=== PATIENT | female | born 1955 | race Caucasian/White ===

== ENCOUNTER 2019-02-14 13:00 | Day surgery (SDC) | payer OTHER ==
[~2019-02-14 13:00] MED LIST: AMLODIPINE PO; ATEN50TA PO; BUPR100T4 PO; CHLO25TA2 PO; LISI40TA4 PO
[2019-02-14] MEDS ORDERED: LIDOcaine 1%/PF 5ML 10 MG/ML VIAL ONE (13:22)
[2019-02-22] MEDS ORDERED: ATOR20TA PO (10:32)
[2019-02-22] MEDS ORDERED: POTA10TA19 PO (10:32)
[2019-02-22] MEDS ORDERED: HYDR12.5 PO (10:32)
[2019-02-22] MEDS ORDERED: AMLO10TA4 PO (10:32)
== END 2019-02-14 13:30 | disposition home or self-care (01) ==
LOC: WOUND CARE 13:00
PROVIDERS: ATTEND Surgery
DX: L02.411 Cutaneous abscess of right axilla (principal); L72.3 Sebaceous cyst; I10 Essential (primary) hypertension; M06.9 Rheumatoid arthritis, unspecified; Z87.891 Personal history of nicotine dependence
CPT/HCPCS: 10060; A6449

== ENCOUNTER 2019-02-26 07:17 | Day surgery (SDC) | payer OTHER ==
[2019-02-22 10:37] LABS: BASOPHILS # (AUTO) 0.1 X10'3 (0-0.2); EOSINOPHILS # (AUTO) 0.2 X10'3 (0-0.9); EOSINOPHILS % (AUTO) 3.1 % (0-6); LYMPHOCYTES # (AUTO) 1.5 X10'3 (1.1-4.8); LYMPHOCYTES % (AUTO) 25.9 % (21-51); MEAN CORPUSCULAR HEMOGLOBIN 33.4 PG (27.0-31.0); MEAN CORPUSCULAR HGB CONC 34.3 g/dL (33.0-36.5); MEAN CORPUSCULAR VOLUME 97.4 FL (78-98); MEAN PLATELET VOLUME 8.4 FL (7.4-10.4); MONOCYTES # (AUTO) 0.5 X10'3 (0-0.9); MONOCYTES % (AUTO) 7.8 % (2-12); NEUTROPHILS # (AUTO) 3.7 X10'3 (1.8-7.7); NEUTROPHILS % (AUTO) 62.2 % (42-75); PRE OP HEMATOCRIT 39.5 % (35.0-45.0); PRE OP HEMOGLOBIN 13.6 g/dL (12.0-16.0); PRE OP PLATELET COUNT 303 X10'3 (140-440); RED BLOOD COUNT 4.05 X10'6 (4.20-5.60); RED CELL DISTRIBUTION WIDTH 12.7 % (11.5-14.5)
[2019-02-22 10:53] LABS: ALBUMIN 3.9 G/DL (3.4-5.0); ALBUMIN/GLOBULIN RATIO 1.2 (1.1-1.5); ALKALINE PHOSPHATASE 99 IU/L (46-116); BLOOD UREA NITROGEN 11 MG/DL (7-18); BUN/CREATININE RATIO 12.5 (6.6-38.0); CHLORIDE 103 MMOL/L (99-107); CREATININE 0.88 MG/DL (0.40-0.90); PRE OP ALT 28 U/L (30-65); PRE OP ANION GAP 7 (8-16); PRE OP AST 18 U/L (10-37); PRE OP BILIRUB, TOTAL 0.5 MG/DL (0.0-1.0); PRE OP GLUCOSE 94 MG/DL (70-104); PRE OP SODIUM 139 MMOL/L (135-145); TOTAL CARBON DIOXIDE 29.2 MMOL/L (24-32); TOTAL PROTEIN 7.2 G/DL (6.4-8.2); eGFR 65 ML/MIN
[2019-02-22 10:55] LABS: PRE OP POTASSIUM 3.3 MMOL/L (3.4-5.1)
[2019-02-22 13:53] LABS: CLARITY,URINE CLEAR (Clear); COLOR,URINE YELLOW (Yellow); GLUCOSE, URINE NEGATIVE (Neg); KETONES,URINE NEGATIVE (Neg); LEUKOCYTE ESTERASE ,URINE NEGATIVE (Neg); NITRITES, URINE NEGATIVE (Neg); OCCULT BLOOD,URINE TRACE-LYSED (Neg); PROTEIN,URINE NEGATIVE (Neg); UROBILINOGEN,URINE 0.2 E.U/dL (0.2-1.0)
[2019-02-22 13:59] LABS: UA COLLECTION TYPE CLN CATCH MIDSTREAM
[2019-02-22 14:00] LABS: BACTERIA,URINE FEW /HPF (Neg); MUCUS STRANDS FEW /LPF (Neg); RBC,URINE 0-2 /HPF (0-2); SQUAMOUS EPITHELIAL CELL,UR FEW /LPF (FEW); WBC,URINE 0-4 /HPF (0-4)
[~2019-02-26] VITALS: Ht 165.1 cm; Wt 67.0 kg
[2019-02-26] VITALS (9 sets, daily range): BP systolic 106–125; BP diastolic 63–78
[~2019-02-26 07:17] MED LIST changes: +AMLO10TA4 PO; -AMLODIPINE PO; +ATOR20TA PO; +DOCUMENT DATE & TIME OF BETA-BLOCKER PO ONE; +HYDR12.5 PO; +POTA10TA19 PO; +famotidine 20mg tablet PO ONE; +ringers solution, lacted 1,000 ML IV SCH
[2019-02-26 08:05] LABS: ISTAT CREATININE 0.8 mg/dL (0.6-1.1); ISTAT HGB 12.9 g/dl (12.0-16.0); ISTAT IONIZED CALCIUM 1.17 mmol/L (1.03-1.32); ISTAT K 3.4 mmol/L (3.5-5.1); POC BUN/CREATININE RATIO 13.8 (6.6-38.0)
[2019-02-26] MEDS ORDERED: BUPIVAcaine/PF 2.5 mg/ml (0.25%) 30ml vial ONE ×2 (09:27→10:19)
[2019-02-26] MEDS ORDERED: LIDOcaine 1% 30ml preserv. free vial ONE (09:37)
[2019-02-26] MEDS ORDERED: fentaNYL/PF 50MCG/1 ML 2ML syringe ONE (09:37)
[2019-02-26] MEDS ORDERED: MIDAZolam 5mg/5ml vial ONE (09:38)
[2019-02-26] MEDS ORDERED: ketamine 50mg/5ml syringe ONE (10:12)
[2019-02-26] MEDS ORDERED: LIDOcaine 1%/PF 5ML 10 MG/ML VIAL ONE (10:30)
[2019-02-26] MEDS ORDERED: propofol inj 20 ML IV ONE (10:30)
--- NOTE | 2019-02-26 10:34 | NUR ---
Received from OR via [facility], accompanied by Anesthesiologist DR ASTUDILLO and report given by Anesthesiologist. PT AWAKE, DENYESIS PAIN, RIGHT AXILLA W/FOAM TAPE COVERING INCISION CDI. Addendum: 02/26/19 at 1049 by Elsa Mccauley RN Amended: Links added.
[2019-02-26] MEDS ORDERED: ringers solution, lacted 1,000 ML IV SCH (10:38)
[2019-02-26] MEDS ORDERED: meperidine/PF 25mg/ml syringe IV PRN (10:40)
[2019-02-26] MEDS ORDERED: ondansetron/PF 4mg/2ml inj IV PRN (10:40)
[2019-02-26] MEDS ORDERED: HYDROmorphone inj. 0.5 MG/0.5 ML DISP.SYRIN IV PRN (10:40)
--- NOTE | 2019-02-26 11:54 | NUR ---
D/C INSTRUCTIONS GIVEN AND GONE OVER W/PT, VERBALIZES UNDERSTANDING, PT D/CD TO HOME VIA W/C TO PRIVATE VEHICLE W/O INCIDENT. Addendum: 02/26/19 at 1206 by Elsa Mccauley RN Amended: Links added.
[2019-02-27] MEDS ORDERED: cefazolin/dext.iso 2gm/100 ML IV ONE (05:30)
== END 2019-02-26 11:54 | disposition home or self-care (01) ==
LOC: PAS 07:17
PROVIDERS: ATTEND Surgery
DX: L72.0 Epidermal cyst (principal); I10 Essential (primary) hypertension; F32.9 Major depressive disorder, single episode, unspecified; Z98.51 Tubal ligation status; Z98.890 Other specified postprocedural states; Z87.891 Personal history of nicotine dependence; Z79.899 Other long term (current) drug therapy
CPT/HCPCS: 11402; 36415; 80047; 80053; 81001; 85025; 93005; J2001; J2250; J2704; J3010; J3490; A4215; A4618; A6449; A7000; J7120

== ENCOUNTER → 2020-02-07 | Outpatient (CLI) | payer BC ==
[~2020-02-07] MED LIST changes: -DOCUMENT DATE & TIME OF BETA-BLOCKER PO ONE; -famotidine 20mg tablet PO ONE; -ringers solution, lacted 1,000 ML IV SCH
== END | disposition home or self-care (01) ==
LOC: LAB 15:31
PROVIDERS: ATTEND Nurse Practitioner
DX: M19.041 Primary osteoarthritis, right hand (principal); M25.741 Osteophyte, right hand; M85.841 Other specified disorders of bone density and structure, right hand
CPT/HCPCS: 73030; 73060; 73090; 73110

== ENCOUNTER 2020-06-29 12:45 | Outpatient (CLI) | payer BC | END 2020-06-29 23:59 | disposition home or self-care (01) | LOC: CARD DIAG 12:45 | PROVIDERS: ATTEND Nurse Practitioner Family | DX: R53.83 Other fatigue (principal) | CPT/HCPCS: 93306 ==

== ENCOUNTER 2021-06-07 11:31 | Outpatient (CLI) | payer BC ==
[~2021-06-07 11:31] MED LIST changes: +LISI40TA13 PO; -LISI40TA4 PO; +POTA-192 PO; -POTA10TA19 PO
== END 2021-06-07 23:59 | disposition home or self-care (01) ==
LOC: RAD 11:31
PROVIDERS: ATTEND Family Medicine
DX: S92.334A Nondisplaced fracture of third metatarsal bone, right foot, initial encounter for closed fracture (principal); M77.51 Other enthesopathy of right foot and ankle; W19.XXXA Unspecified fall, initial encounter; Y93.9 Activity, unspecified; Y92.89 Other specified places as the place of occurrence of the external cause; Y99.8 Other external cause status; Y93.89 Activity, other specified
CPT/HCPCS: 73610; 73630

== ENCOUNTER 2021-07-27 09:13 | Outpatient (CLI) | payer BC | END 2021-07-27 23:59 | disposition home or self-care (01) | LOC: RAD 09:13 | PROVIDERS: ATTEND Podiatrist Foot & Ankle Surgery | DX: S92.301A Fracture of unspecified metatarsal bone(s), right foot, initial encounter for closed fracture (principal); R60.9 Edema, unspecified; M25.471 Effusion, right ankle; M81.0 Age-related osteoporosis without current pathological fracture; X58.XXXA Exposure to other specified factors, initial encounter; Y93.89 Activity, other specified; Y92.89 Other specified places as the place of occurrence of the external cause; Y99.8 Other external cause status | CPT/HCPCS: 73718 ==

== ENCOUNTER 2021-07-27 09:21 | Outpatient (CLI) | payer BC ==
[2021-07-27 12:01] LABS: CLARITY,URINE CLEAR (Clear); COLOR,URINE YELLOW (Yellow); GLUCOSE, URINE NEGATIVE (Neg); KETONES,URINE NEGATIVE (Neg); LEUKOCYTE ESTERASE ,URINE NEGATIVE (Neg); NITRITES, URINE NEGATIVE (Neg); OCCULT BLOOD,URINE TRACE-INTACT (Neg); PROTEIN,URINE NEGATIVE (Neg); UROBILINOGEN,URINE 0.2 E.U/dL (0.2-1.0)
[2021-07-27 12:02] LABS: BASOPHILS # (AUTO) 0.1 X10'3 (0-0.2); BASOPHILS % (AUTO) 1.1 % (0-1); EOSINOPHILS # (AUTO) 0.1 X10'3 (0-0.9); EOSINOPHILS % (AUTO) 2.2 % (0-6); HEMOGLOBIN 13.2 g/dl (12.0-16.0); LYMPHOCYTES # (AUTO) 1.5 X10'3 (1.1-4.8); LYMPHOCYTES % (AUTO) 26.3 % (21-51); MEAN CORPUSCULAR HEMOGLOBIN 33.4 PG (27.0-31.0); MEAN CORPUSCULAR VOLUME 98.3 FL (78-98); MEAN PLATELET VOLUME 9.4 FL (7.4-10.4); MONOCYTES # (AUTO) 0.4 X10'3 (0-0.9); MONOCYTES % (AUTO) 7.5 % (2-12); NEUTROPHILS # (AUTO) 3.6 X10'3 (1.8-7.7); NEUTROPHILS % (AUTO) 62.9 % (42-75); PLATELET COUNT 337 X10'3 (140-440); RED BLOOD COUNT 3.96 X10'6 (4.20-5.60); RED CELL DISTRIBUTION WIDTH 13.6 % (11.5-14.5); WHITE BLOOD COUNT 5.7 X10'3 (4.5-11.0)
[2021-07-27 12:05] LABS: UA COLLECTION TYPE CLN CATCH MIDSTREAM
[2021-07-27 12:06] LABS: SQUAMOUS EPITHELIAL CELL,UR FEW /LPF (FEW)
[2021-07-27 12:07] LABS: MUCUS STRANDS FEW /LPF (Neg)
[2021-07-27 12:08] LABS: BACTERIA,URINE NONE SEEN /HPF (Neg); TRANSITIONAL EPI CELLS,URINE FEW /HPF
[2021-07-27 12:09] LABS: RBC,URINE 0-2 /HPF (0-2); WBC,URINE 0-4 /HPF (0-4)
[2021-07-27 12:15] LABS: % IRON SATURATION 30 % (11-46); IRON 90 UG/DL (49-151); TOTAL IRON BINDING CAPACITY 301 UG/DL (259-388)
[2021-07-27 12:32] LABS: ALANINE AMINOTRANSFERASE 39 U/L (12-78); ALBUMIN 4.1 G/DL (3.4-5.0); ALBUMIN/GLOBULIN RATIO 1.2 (1.1-1.5); ALKALINE PHOSPHATASE 119 IU/L (46-116); ANION GAP 9 (8-16); ASPARTATE AMINO TRANSFERASE 24 U/L (10-37); BILIRUBIN,TOTAL 0.4 MG/DL (0.1-1.0); BLOOD UREA NITROGEN 10 MG/DL (7-18); BUN/CREATININE RATIO 12.5 (6.6-38.0); CALCIUM 9.6 MG/DL (8.5-10.1); CHLORIDE 100 MMOL/L (99-107); CHOL/HDL RATIO 3.4 (0.00-4.99); CHOLESTEROL 216 MG/DL (0-200); FERRITIN 133 NG/ML (8-252); GLUCOSE 96 MG/DL (70-104); HDL CHOLESTEROL 63 MG/DL (35-60); LDL CHOLESTEROL 120 MG/DL (50-100); PHOSPHORUS 3.4 MG/DL (2.3-4.5); POTASSIUM 3.3 MMOL/L (3.5-5.1); SODIUM 136 MMOL/L (135-145); TOTAL PROTEIN 7.5 G/DL (6.4-8.2); TRIGLYCERIDES 191 MG/DL (20-135); eGFR 72 ML/MIN
[2021-07-27 12:35] LABS: C-REACTIVE PROTEIN < 0.05 MG/DL (0.0-0.5)
[2021-07-27 13:11] LABS: RHEUM FACTOR QUAL REFLEX TITER NEGATIVE (Neg)
[2021-07-28 11:32] LABS: ANTINUCLEAR ANTIBODIES Negative (Negative); TRANSFERRIN 260 mg/dL (192-364)
[2021-07-28 16:58] LABS: MICROALB/CRT, RATIO 7 mg/g creat (0-29)
== END 2021-07-27 23:59 | disposition home or self-care (01) ==
LOC: LAB 09:21
PROVIDERS: ATTEND Family Medicine
DX: F41.8 Other specified anxiety disorders (principal); R53.1 Weakness; E55.9 Vitamin D deficiency, unspecified; R53.83 Other fatigue; M06.9 Rheumatoid arthritis, unspecified; I10 Essential (primary) hypertension; I87.8 Other specified disorders of veins; R29.818 Other symptoms and signs involving the nervous system; E78.5 Hyperlipidemia, unspecified; K21.9 Gastro-esophageal reflux disease without esophagitis; N83.209 Unspecified ovarian cyst, unspecified side; Z14.8 Genetic carrier of other disease; Z91.89 Other specified personal risk factors, not elsewhere classified
CPT/HCPCS: 36415; 80053; 80061; 81001; 82043; 82306; 82330; 82570; 82607; 82728; 82746; 83540; 83550; 83921; 83970; 84100; 84425; 84439; 84443; 84466; 84550; 85025; 85651; 86038; 86140; 86430

== ENCOUNTER 2021-11-25 12:56 | Outpatient (CLI) | payer OTHER | END 2021-11-25 23:59 | disposition home or self-care (01) | LOC: RAD 12:56 | PROVIDERS: ATTEND Podiatrist Foot & Ankle Surgery | DX: S92.301A Fracture of unspecified metatarsal bone(s), right foot, initial encounter for closed fracture (principal); M77.31 Calcaneal spur, right foot; M20.11 Hallux valgus (acquired), right foot; M81.0 Age-related osteoporosis without current pathological fracture; X58.XXXA Exposure to other specified factors, initial encounter; Y93.89 Activity, other specified; Y92.89 Other specified places as the place of occurrence of the external cause; Y99.8 Other external cause status | CPT/HCPCS: 73700 ==